=== PATIENT | male | born 1940 | race Caucasian/White ===

== ENCOUNTER 2016-09-09 14:15 | Emergency (ER) | payer MEDICARE, OTHER ==
[~2016-09-09 14:15] MED LIST: ASCO500T12 PO; ATOR20TA9 PO; CITA10TA8 PO; DABI150C PO; DONE10TA7 PO; DONE5TAB30 PO; LEVO75TA PO; LISI20TA PO; METO25TA35 PO; MIRT30TA4 PO; NIAC500C8 PO; OMEG1000 PO; PROP10TA PO; UBID400C4 PO
[2016-09-09 16:04] LABS: HEMOGLOBIN 13.6 g/dL (13.7-18.0)
[2016-09-09 16:14] LABS: ASPARTATE AMINO TRANSFERASE 18 U/L (15-37); BLOOD UREA NITROGEN 15 mg/dL (7-18)
[2016-09-09 18:33] VITALS: BP 121/79
[2016-09-09] MEDS ORDERED: VALPROIC ACID 250 MG CAPSULE PO STA (18:35)
== END 2016-09-09 19:13 | disposition home or self-care (01) ==
LOC: ED 19:06
DX: R41.82 Altered mental status, unspecified (principal); R45.1 Restlessness and agitation; I25.2 Old myocardial infarction; I10 Essential (primary) hypertension; Z95.1 Presence of aortocoronary bypass graft; Z87.891 Personal history of nicotine dependence
CPT/HCPCS: 36415; 70450; 80053; 81003; 82140; 85025; 99285

== ENCOUNTER 2016-10-24 19:40 | Emergency (ER) | payer MEDICARE, OTHER ==
[~2016-10-24] VITALS: Ht 188 cm; Wt 82.9 kg
[~2016-10-24 19:40] MED LIST changes: +AMIODARONE 50 MG/ML, 3ML ONE; +EPINEPHRINE SYRINGE 0.1 MG/ML, 10ML ONE
[2016-10-24] MEDS ORDERED: PLEASE ENTER HEIGHT AND WEIGHT MC SCH (20:30)
[2016-10-24] MEDS ORDERED: PLEASE ENTER ALLERGIES MC SCH ×2 (20:30)
[2016-10-24] MEDS ORDERED: CODE BLUE RESPONSE XX ONE (20:30)
== END 2016-10-24 21:01 | disposition expired ==
LOC: ED 20:30
DX: I46.9 Cardiac arrest, cause unspecified (principal); I49.01 Ventricular fibrillation; I10 Essential (primary) hypertension; Z95.1 Presence of aortocoronary bypass graft; Z95.5 Presence of coronary angioplasty implant and graft; Z95.0 Presence of cardiac pacemaker; Z87.891 Personal history of nicotine dependence; Z86.74 Personal history of sudden cardiac arrest
CPT/HCPCS: 31500; 92950; 99285; J0282